=== PATIENT | male | born 1995 | race Caucasian/White ===

== ENCOUNTER 2018-07-01 16:12 | Emergency (ER) | payer BC, SELFPAY ==
[2018-07-01] VITALS (33 sets, daily range): BP systolic 102–123; BP diastolic 44–81; PULSE 61–114; RESP 16–23; TEMP 37–38.6; O2SAT 95–98
--- NOTE | 2018-07-01 16:20 | DI.CT_ITS ---
SYMPTOMS/DIAGNOSIS: ABSCESS CT SCAN OF THE NECK: CT scan of the neck was performed following the uneventful administration of intravenous contrast material. There are no priors for comparison. There is symmetric enlargement of the palatine tonsils bilaterally. No fluid collection is seen to suggest a tonsillar abscess. The tonsils meet in the midline narrowing of the airway. There is a fluid density collection in the retropharyngeal soft tissues measures up to 0.6 cm AP diameter x 2.3 cm transverse x 6 cm craniocaudally. The findings are suspicious for retropharyngeal abscess. There are enlarged lymph nodes in the neck which are likely reactive. The largest are noted adjacent to the submandibular glands and the largest measures 2.5 cm in length. The nasopharynx, oropharynx, hypopharynx and larynx are otherwise unremarkable. The parotid and submandibular glands are unremarkable. The thyroid gland has a normal appearance. The lung apices are clear. The cervical spine is normal in alignment. No fractures or subluxations are appreciated. There is mild mucosal thickening in the ethmoid air cells, maxillary sinuses and sphenoid sinuses bilaterally. No fluid levels are seen. The mastoid air cells are well pneumatized. IMPRESSION: 1. Fluid collection in the retropharyngeal space measuring 0.6 cm x 6 cm x 2.3 cm suspicious for a retropharyngeal abscess. 2. Bilateral symmetric enlargement of the palatine tonsils suggesting tonsillitis. 3. Enlarged cervical lymph nodes likely reactive.
--- NOTE | 2018-07-01 16:26 | W.ED.GENAD ---
Discharge Plan Disposition Patient Disposition: STILL A PATIENT Condition: Serious Discharge Details Chief Complaint: Sorethroat Clinical Impression: CMV mononucleosis Primary Care Provider: [facility] Provider: Summer Gutierrez Home Meds and New Rx's Prescriptions: No Action No Known Home Meds RF: 0 Discharge Data Discharge Date/Time-TO BE ENTERED AT DEPARTURE: 07/02/18 00:51 Medical Decision Making Patient is a 22-year-old male presents today with chief complaint of sore throat. On exam, the patient does appear toxic. He is currently febrile with a temp of 38.6. He is a large amount of swelling and drooling from oropharynx. Swelling is appreciated on the bilateral aspect of the neck with external visualization. He is tripoding and appears uncomfortable. He is holding the mouth in an open position unable to close secondary to swelling, trismus is appreciated. Posterior oropharynx is significant for bilateral tonsillar exudate, swelling of tonsils touching. Uvula is midline. Lungs are clear on exam. He is denying any cough. Reports that he has been able to hydrate some. I am quite concerned for large abscesses that may extend into the lower aspects of the neck given the large amount of swelling he is having. Also have concidered mono given the bilateral swelling but have not seen swelling this dramatic with mono in the past. Patient will be hydrated, begun on clindamycin, given IV dexamethasone will obtain CT of the patient's neck. Blood cultures and laboratory evaluation have been drawn including CBC, CMP, lactate, mono screen. Discussed plan to the patient who is in agreement. Patient does not appear to be in imminent danger of losing his airway, is breathing comfortably, oxygen is 98% on room air. No submandibular swelling. Patient is kept in upright position as this seems to help with breathing and secretions. After receiving IV Dexamethasone he became nausated and began to dry heave. Will give IV Zofran. I am concerned given the appearance of his airway that if the patient was to vomit he may loose his airway. Consulted with Dr. Rodgers who also evaluated the patient. Based on the patients fatigue and equal, bilateral swelling, she is concerned that this is a severe case of mono. [facility] screen has already been sent. Labs are pending. In the interum, she advised that we continue with the above plan and add Toradol to help with discomfort. Patient afebrile after IV Tylenol. Patient is found to be mono positive. Lactate 1.6. Remaining labs are pending CT reviewed by radiologist. They note bilateral symmetric enlargement of the palatine tonsils with no peritonsillar abscess. Hypopharynx is unremarkable. Larynx is unremarkable, normal epiglottis. Advised trachea is unremarkable. Retropharyngeal space is significant for low-density fluid present with the retropharyngeal space measuring up to 0.6 cm in thickness and extending from C2 through C4 levels. Submandibular and parotid glands are unremarkable, glands are of normal size. Thyroid is unremarkable with no enlargement or calcified nodules. Lungs are unremarkable. Vasculature is unremarkable no acute findings. Patient is known to have multiple enlarged bilateral cervical chain lymph nodes, likely reactive. Lung apices are clear. Upper mediastinum is unremarkable. Consulted with [facility] and spoke with Dr. Steele. He reviewed the patient's CT. Advised that the fluid collection that the radiologist noted was not an retropharyngeal abscess. Advised that this appears benign. Advised that this is flat and not concerning for airway compromise at this time. Encouraged we treat typically for mono. Advised use of dexamethasone which patient has already received. Advised that at this time it does not sound to be infectious in nature as the patient's temperature is less than 39 ?C. Encourage symptomatic management. He did advise that if there was leukocytosis the patient may receive a dose of antibiotics for possible underlying bacterial etiology that may also be present. His white count is elevated at 13.94. This is elevated 7.9. AST and ALT are both elevated at 247 and 462 respectively. Patient appearance still seems far too sick to be able to send home. I remain concerned about his airway. He is currently on oxygen. Coughing frequently, increasing my concern for his airway. Appears otherwise comfortable, texting on his phone. While ENT does not feel that he is a surgical candidate at this time, I will consult with our hospitalist regarding admission Spoke with Dr. Damian regarding admission. However, given the patient's acuity and possible airway management concerns, he did not feel that this patient was appropriate for admission to our facility as we do not have any ENT backup Consulted again with [facility] regarding hospital admission to medicine where airway may be managed if necessary. They advised they have no hospital medicine beds and are unable to take patient in transfer Contacted [facility] to discuss possible transfer as [facility] is refusing hospital admissions at this time. Awaiting callback Spoke with [facility], they also advised no bed availability. Discussed this concern with the patient and his parents. Advised that we could try to transfer him further south, toward their home in [place]. Plan to next contact the [facility] in [place]. Mother seems to be in agreement but father is concerned about cost. They are quesitoning if they may transport him POV to other facility. I advised that given the appearance of his airway, I would not recommend this, particularly as he was near vomiting earlier. We discussed, at length, my concern for possible airway compromise and advised that he would need to go in the presence of [employer] sewer so that, in the event he have airway compromise, a medical professional would be able to intervein. Father reports that he can stop at another facility if needed along the way. However, I advised that this is something that could potentionially be life threatening and immediate without time to reach another facility and advised strongly against this. I have given them time to discuss. ADvised that should he leave in POV it would be AMA. After seeing another patient, I returned to find that the parents had left. Patient reports that he is feeling improved overall and that he will be leaving with his parents POV to go back to [place]. I discussed my concerns with the patient privately as well so that he is aware of the risks of transport and we may discuss these concerns without his parents. He voices understanding, is cognitively appropriate, and wishes to go with his parents back to [place] via POV. He continues with his hot potato voice, has large amount of external swelling. Is now able to close his mouth, continues to be without stridor or wheezing. He and his family plan to leave here and go to another ER facility in [place]. Family came back after 1.5 hours of packing. Mother is now questioning which hospital he will be tranferred to. I advised that, given what the patient and family had said previously, no transfer had been arranged as they had said they would take him POV to [place]. They seem quiet frustrated by this. Again, we discussed the risks at length of him traveling POV and that this would be against medical advise. Advised that we are unable to arrange for transfer via private vehicle secondary to patient safety concerns. Family again spoke privately and now agree to transfer via EMS to hospital closer to home as there is no appropriate facility that is currently accepting patients closer. Father gave list of 3 hospitals within close proximity to their home. Spoke with [facility], no beds available. Spoke with [facility], no beds available. Consulted with ER physician at [facility], spoke with Dr. Betancur . She advises that their [facility] does not have ENT coverage and she is concerned that their facility is not appropriate place for transfer. ADvised [facility], [facility] or other larger facility near [place]. [facility] [place] regarding transfer to their facility. No bed available at this time. Will consult with [facility] to discuss transfer. No beds available in [facility] at this time including [facility]. No beds available at [facility]. Spoke with [facility], no beds available. No beds at [facility]. Consult with [facility]. Awaiting call back on possible pediatric bed. Consulted with [facility] to discuss possible transfer. They will call back. Spoke with [facility] pediatric physician, Dr. Lei. Gave report. She is concerned about transfer and feels that he would be better to transfer to the ED first, is going to consult with the ED and call us back. At the end of my shift, I am awaiting call back from above hospitals. Patient continues to appear more improved. He is speaking with hot potato voice, continues to have visible external swelling. Is able to close his mouth and handle secretions at this time. Care was transferred to Dr. Sweet who will continue to work on disposition for the patient. Spoke with mother again regarding his improvements but my continued concern for his airway. HPI General Mode of arrival: ambulatory. Date/Time Provider Initiated Documentation: 07/01/18 16:19. Limitations to Documentation: no limitations. Information obtained by: patient. History of Present Illness 22 year old M presents to the emergency department with the chief complaint of sore throat, described as severe, with intensity rated at 7 (reports pain is minimal but swelling is maximal, limiting the movement of jaw and muffling voice). Quality is described as aching, and is localized to the mouth and neck. Patient reports no radiation. Patient started experiencing this day(s) (3) and it has been constant. No relieving factors improve symptom(s), No exacerbating factors reported . Patient notes fever/chills, loss of appetite, malaise and nausea/vomiting; denies chest pain, cough, diaphoresis, headaches, rash, shortness of breath and weakness. Patient did receive the following treatments prior to arrival, none Related Data Home Medications Medication Instructions Recorded Confirmed Unknown [No Known Home Meds] 01/22/17 01/22/17 Allergies Allergy/AdvReac Type Severity Reaction Status Date / Time No Known Allergies Allergy Unverified 01/22/17 23:14 General Stated Complaint: Sorethroat YAW: 2 Review of Systems Constitutional Reports chills, Reports fatigue, Reports fever(s), Denies headache(s) and Reports poor appetite Eyes Denies change in vision, Denies diplopia, Denies irritation and Denies itchy eyes ENT Denies dizziness, Denies ear discharge, Denies facial pain, Denies headache(s), Denies lip swelling, Denies epistaxis, Denies nose pain, Denies post nasal drip, Denies sinus pain, Denies sinus pressure, Reports sore throat, Reports throat swelling and Denies tongue swelling Cardiovascular Denies chest pain, Denies chest pain at rest and Denies dyspnea Respiratory Denies cough, Denies dyspnea, Denies stridor and Denies wheezing Gastrointestinal Denies abdominal pain, Denies change in stool character, Denies constipation, Denies diarrhea, Reports nausea and Denies vomiting Musculoskeletal Denies abnormal gait and Denies back pain Integumentary/Breasts Denies rash Neurologic Reports abnormal speech, Denies abnormal gait, Denies dizziness and Denies headache(s) Endocrine Reports fatigue Allergic/Immunologic Denies itchy eyes, Denies lip swelling, Reports throat swelling, Denies tongue swelling and Denies wheezing [facility] Social History Smoking/Tobacco Use Status: Never Exam Const General: cooperative, well developed, well groomed, not anxious, ill appearing acutely and well hydrated Nutritional Appearance: average body habitus and well nourished Orientation: alert and awake [facility] Head: normal to inspection, normocephalic and atraumatic Ears: hearing grossly normal bilaterally, external ears normal and TM's normal bilaterally General nose exam: external nose normal and nares normal Face and sinus: normal facial exam and sinuses nontender Mouth: tongue normal, oropharynx abnormals, moist mucous membranes, audible dysphonia (hot potato voice), drooling (patient is not swallowing secretions), normal lip, No mouth trauma, muffled voice, trismus and restricted motion (patient is holding mouth in a semiopened position with lower jaw thrust forward) Teeth and gingiva: dentition normal Throat: uvula midline, abnormal tonsil bilaterally erythema, exudates and hypertrophy 4+, uvula not displaced and no uvular edema Eyes General: appearance normal, both eyes and all related structures Neck Neck: not normal to visual inspection, lymphadenopathy noted (patient has gross amount of swelling with swelling that extends outward past the sides of the jaw line. Swelling extends inferiorly to the clavicle), trachea midline, anterior neck swelling, lymphadenopathy, no midline deformity, tender and no tracheal deviation Chest Chest: normal inspection of the chest Resp Effort & Inspection: normal respiratory effort, able to speak in complete sentences, no audible wheezes, cough Quality of cough: dry (seems associated with throat irritation), no respiratory distress, no retractions, no stridor, not tachypneic, no tracheal deviation, tripod positioning and no use of accessory muscles Auscultation: clear to auscultation bilaterally, no rales, no rhonchi and no wheezes Cardio Rate: regular rate Rhythm: regular rhythm Heart Sounds: S1 normal and S2 normal GI Inspection: normal to inspection, no edema and non-distended Palpation: soft, no hepatosplenomegaly, not firm, no guarding, no hepatosplenomegaly, no masses, not rigid and nontender Auscultation: normal bowel sounds Skin General skin exam: no rashes or lesions noted Lesions: no lesions Rashes: no rashes Trauma: no lacerations or abrasions Neuro General: alert and awake Cognition: normal cognition Speech: speech normal Gait: normal gait Psych Appearance: grossly normal and well kempt Mental Status: mental status grossly normal Speech and Movement: speech and movement normal Course Vital Signs Temperature 38.6 C H 07/01/18 16:17 Pulse 114 H 07/01/18 16:17 Respiratory Rate 20 07/01/18 16:17 Blood Pressure 123/56 L 07/01/18 16:17 Pulse Oximetry 98 07/01/18 16:17 Temperature 38.6 C H 07/01/18 16:17 Temperature Source Temporal Artery Scan 07/01/18 16:17 Pulse 114 H 07/01/18 16:17 Respiratory Rate 20 07/01/18 16:17 Blood Pressure 123/56 L 07/01/18 16:17 Blood Pressure Position Supine 07/01/18 16:17 Pulse Oximetry 98 07/01/18 16:17 Oxygen Delivery Method Room Air 07/01/18 16:17 Oxygen Flow Rate 0 07/01/18 16:17 Pain Level 6 07/01/18 16:17 Lab/Test Results Lab/Test Results: 07/01/18 16:20 Blood Blood Culture - Pending 07/01/18 16:20 Blood Blood Culture - Pending
--- NOTE | 2018-07-01 16:30 | ED.GENADUL_ITS ---
Discharge Plan Disposition Patient Disposition: STILL A PATIENT Condition: Serious Discharge Details Chief Complaint: Sorethroat Clinical Impression: CMV mononucleosis Primary Care Provider: [facility] ED Provider: Summer Gutierrez Home Meds and New Rx's Prescriptions: No Action No Known Home Meds RF: 0 Discharge Data Discharge Date/Time-TO BE ENTERED AT DEPARTURE: 07/02/18 00:51 Medical Decision Making Patient is a 22-year-old male presents today with chief complaint of sore throat. On exam, the patient does appear toxic. He is currently febrile with a temp of 38.6. He is a large amount of swelling and drooling from oropharynx. Swelling is appreciated on the bilateral aspect of the neck with external visualization. He is tripoding and appears uncomfortable. He is holding the mouth in an open position unable to close secondary to swelling, trismus is appreciated. Posterior oropharynx is significant for bilateral tonsillar exudate, swelling of tonsils touching. Uvula is midline. Lungs are clear on exam. He is denying any cough. Reports that he has been able to hydrate some. I am quite concerned for large abscesses that may extend into the lower aspects of the neck given the large amount of swelling he is having. Also have concidered mono given the bilateral swelling but have not seen swelling this dramatic with mono in the past. Patient will be hydrated, begun on clindamycin , given IV dexamethasone will obtain CT of the patient's neck. Blood cultures and laboratory evaluation have been drawn including CBC, CMP, lactate, mono screen. Discussed plan to the patient who is in agreement. Patient does not appear to be in imminent danger of losing his airway, is breathing comfortably, oxygen is 98% on room air. No submandibular swelling. Patient is kept in upright position as this seems to help with breathing and secretions. After receiving IV Dexamethasone he became nausated and began to dry heave. Will give IV Zofran. I am concerned given the appearance of his airway that if the patient was to vomit he may loose his airway. Consulted with Dr. Rodgers who also evaluated the patient. Based on the patients fatigue and equal, bilateral swelling, she is concerned that this is a severe case of mono. Cross screen has already been sent. Labs are pending. In the interum, she advised that we continue with the above plan and add Toradol to help with discomfort. Patient afebrile after IV Tylenol. Patient is found to be mono positive. Lactate 1.6. Remaining labs are pending CT reviewed by radiologist. They note bilateral symmetric enlargement of the palatine tonsils with no peritonsillar abscess. Hypopharynx is unremarkable. Larynx is unremarkable, normal epiglottis. Advised trachea is unremarkable. Retropharyngeal space is significant for low-density fluid present with the retropharyngeal space measuring up to 0.6 cm in thickness and extending from C2 through C4 levels. Submandibular and parotid glands are unremarkable, glands are of normal size. Thyroid is unremarkable with no enlargement or calcified nodules. Lungs are unremarkable. Vasculature is unremarkable no acute findings. Patient is known to have multiple enlarged bilateral cervical chain lymph nodes, likely reactive. Lung apices are clear. Upper mediastinum is unremarkable. Consulted with [facility], ENT and spoke with Dr. Steele. He reviewed the patient's CT. Advised that the fluid collection that the radiologist noted was not an retropharyngeal abscess. Advised that this appears benign. Advised that this is flat and not concerning for airway compromise at this time. Encouraged we treat typically for mono. Advised use of dexamethasone which patient has already received. Advised that at this time it does not sound to be infectious in nature as the patient's temperature is less than 39 ?C. Encourage symptomatic management. He did advise that if there was leukocytosis the patient may receive a dose of antibiotics for possible underlying bacterial etiology that may also be present. His white count is elevated at 13.94. This is elevated 7.9. AST and ALT are both elevated at 247 and 462 respectively. Patient appearance still seems far too sick to be able to send home. I remain concerned about his airway. He is currently on oxygen. Coughing frequently, increasing my concern for his airway. Appears otherwise comfortable, texting on his phone. While ENT does not feel that he is a surgical candidate at this time, I will consult with our hospitalist regarding admission Spoke with Dr. Damian regarding admission. However, given the patient's acuity and possible airway management concerns, he did not feel that this patient was appropriate for admission to our facility as we do not have any ENT backup Consulted again with [facility] regarding hospital admission to medicine where airway may be managed if necessary. They advised they have no hospital medicine beds and are unable to take patient in transfer Contacted [facility] to discuss possible transfer as [facility] is refusing hospital admissions at this time. Awaiting callback Spoke with [facility], they also advised no bed availability. Discussed this concern with the patient and his parents. Advised that we could try to transfer him further south, toward their home in [place]. Plan to next contact the [facility] in [place]. Mother seems to be in agreement but father is concerned about cost. They are quesitoning if they may transport him POV to other facility. I advised that given the appearance of his airway, I would not recommend this, particularly as he was near vomiting earlier. We discussed, at length, my concern for possible airway compromise and advised that he would need to go in the presence of service team leader so that, in the event he have airway compromise, a medical professional would be able to intervein. Father reports that he can stop at another facility if needed along the way. However, I advised that this is something that could potentionially be life threatening and immediate without time to reach another facility and advised strongly against this. I have given them time to discuss. ADvised that should he leave in POV it would be AMA. After seeing another patient, I returned to find that the parents had left. Patient reports that he is feeling improved overall and that he will be leaving with his parents POV to go back to [place]. I discussed my concerns with the patient privately as well so that he is aware of the risks of transport and we may discuss these concerns without his parents. He voices understanding, is cognitively appropriate, and wishes to go with his parents back to [place] via POV. He continues with his hot potato voice, has large amount of external swelling. Is now able to close his mouth, continues to be without stridor or wheezing. He and his family plan to leave here and go to another ER facility in [place]. Family came back after 1.5 hours of packing. Mother is now questioning which hospital he will be tranferred to. I advised that, given what the patient and family had said previously, no transfer had been arranged as they had said they would take him POV to [place]. They seem quiet frustrated by this. Again, we discussed the risks at length of him traveling POV and that this would be against medical advise. Advised that we are unable to arrange for transfer via private vehicle secondary to patient safety concerns. Family again spoke privately and now agree to transfer via EMS to hospital closer to home as there is no appropriate facility that is currently accepting patients closer. Father gave list of 3 hospitals within close proximity to their home. Spoke with [facility], no beds available. Spoke with [facility], no beds available. Consulted with ER physician at [facility], spoke with Dr. Betancur . She advises that their [facility] does not have ENT coverage and she is concerned that their facility is not appropriate place for transfer. ADvised [facility], [place], [facility] or other larger facility near [place]. [facility] [place] regarding transfer to their facility. No bed available at this time. Will consult with [facility] to discuss transfer. No beds available in [facility] at this time including [facility]. No beds available at [facility]. Spoke with [facility], no beds available. No beds at [facility]. Consult with [facility]. Awaiting call back on possible pediatric bed. Consulted with [facility] to discuss possible transfer. They will call back. Spoke with [facility] pediatric physician, Dr. Lei. Gave report. She is concerned about transfer and feels that he would be better to transfer to the ED first, is going to consult with the ED and call us back. At the end of my shift, I am awaiting call back from above hospitals. Patient continues to appear more improved. He is speaking with hot potato voice, continues to have visible external swelling. Is able to close his mouth and handle secretions at this time. Care was transferred to Dr. Sweet who will continue to work on disposition for the patient. Spoke with mother again regarding his improvements but my continued concern for his airway. HPI General Mode of arrival: ambulatory . Date/Time Provider Initiated Documentation: 07/01/18 16:19 . Limitations to Documentation: no limitations . Information obtained by: patient . History of Present Illness 22 year old M presents to the emergency department with the chief complaint of sore throat, described as severe, with intensity rated at 7 (reports pain is minimal but swelling is maximal, limiting the movement of jaw and muffling voice). Quality is described as aching, and is localized to the mouth and neck. Patient reports no radiation. Patient started experiencing this day(s ) (3) and it has been constant. No relieving factors improve symptom(s), No exacerbating factors reported . Patient notes fever/chills, loss of appetite, malaise and nausea/vomiting; denies chest pain, cough, diaphoresis, headaches, rash, shortness of breath and weakness. Patient did receive the following treatments prior to arrival, none Related Data Home Medications Medication Instructions Recorded Confirmed Unknown [No Known Home Meds] 01/22/17 01/22/17 Allergies Allergy/AdvReac Type Severity Reaction Status Date / Time No Known Allergies Allergy Unverified 01/22/17 23:14 General Stated Complaint: Sorethroat YAW: 2 Review of Systems Constitutional Reports chills, Reports fatigue, Reports fever(s), Denies headache(s) and Reports poor appetite Eyes Denies change in vision, Denies diplopia, Denies irritation and Denies itchy eyes ENT Denies dizziness, Denies ear discharge, Denies facial pain, Denies headache(s), Denies lip swelling, Denies epistaxis, Denies nose pain, Denies post nasal drip , Denies sinus pain, Denies sinus pressure, Reports sore throat, Reports throat swelling and Denies tongue swelling Cardiovascular Denies chest pain, Denies chest pain at rest and Denies dyspnea Respiratory Denies cough, Denies dyspnea, Denies stridor and Denies wheezing Gastrointestinal Denies abdominal pain, Denies change in stool character, Denies constipation, Denies diarrhea, Reports nausea and Denies vomiting Musculoskeletal Denies abnormal gait and Denies back pain Integumentary/Breasts Denies rash Neurologic Reports abnormal speech, Denies abnormal gait, Denies dizziness and Denies headache(s) Endocrine Reports fatigue Allergic/Immunologic Denies itchy eyes, Denies lip swelling, Reports throat swelling, Denies tongue swelling and Denies wheezing [facility] Social History Smoking/Tobacco Use Status: Never Exam Const General: cooperative, well developed, well groomed, not anxious, ill appearing acutely and well hydrated Nutritional Appearance: average body habitus and well nourished Orientation: alert and awake [facility] Head: normal to inspection, normocephalic and atraumatic Ears: hearing grossly normal bilaterally, external ears normal and TM's normal bilaterally General nose exam: external nose normal and nares normal Face and sinus: normal facial exam and sinuses nontender Mouth: tongue normal, oropharynx abnormals, moist mucous membranes, audible dysphonia (hot potato voice), drooling (patient is not swallowing secretions), normal lip, No mouth trauma, muffled voice, trismus and restricted motion ( patient is holding mouth in a semiopened position with lower jaw thrust forward) Teeth and gingiva: dentition normal Throat: uvula midline, abnormal tonsil bilaterally erythema, exudates and hypertrophy 4+, uvula not displaced and no uvular edema Eyes General: appearance normal, both eyes and all related structures Neck Neck: not normal to visual inspection, lymphadenopathy noted (patient has gross amount of swelling with swelling that extends outward past the sides of the jaw line. Swelling extends inferiorly to the clavicle), trachea midline, anterior neck swelling, lymphadenopathy, no midline deformity, tender and no tracheal deviation Chest Chest: normal inspection of the chest Resp Effort & Inspection: normal respiratory effort, able to speak in complete sentences, no audible wheezes, cough Quality of cough: dry (seems associated with throat irritation), no respiratory distress, no retractions, no stridor, not tachypneic, no tracheal deviation, tripod positioning and no use of accessory muscles Auscultation: clear to auscultation bilaterally, no rales, no rhonchi and no wheezes Cardio Rate: regular rate Rhythm: regular rhythm Heart Sounds: S1 normal and S2 normal GI Inspection: normal to inspection, no edema and non-distended Palpation: soft, no hepatosplenomegaly, not firm, no guarding, no hepatosplenomegaly, no masses, not rigid and nontender Auscultation: normal bowel sounds Skin General skin exam: no rashes or lesions noted Lesions: no lesions Rashes: no rashes Trauma: no lacerations or abrasions Neuro General: alert and awake Cognition: normal cognition Speech: speech normal Gait: normal gait Psych Appearance: grossly normal and well kempt Mental Status: mental status grossly normal Speech and Movement: speech and movement normal Course Vital Signs Temperature 38.6 C H 07/01/18 16:17 Pulse 114 H 07/01/18 16:17 Respiratory Rate 20 07/01/18 16:17 Blood Pressure 123/56 L 07/01/18 16:17 Pulse Oximetry 98 07/01/18 16:17 Temperature 38.6 C H 07/01/18 16:17 Temperature Source Temporal Artery Scan 07/01/18 16:17 Pulse 114 H 07/01/18 16:17 Respiratory Rate 20 07/01/18 16:17 Blood Pressure 123/56 L 07/01/18 16:17 Blood Pressure Position Supine 07/01/18 16:17 Pulse Oximetry 98 07/01/18 16:17 Oxygen Delivery Method Room Air 07/01/18 16:17 Oxygen Flow Rate 0 07/01/18 16:17 Pain Level 6 07/01/18 16:17 Lab/Test Results Lab/Test Results: 07/01/18 16:20 Blood Blood Culture - Pending 07/01/18 16:20 Blood Blood Culture - Pending
[2018-07-01] MEDS: Dexamethasone 10 MG/ML VIAL IVP (16:35)
[2018-07-01] MEDS: Ondansetron 4 MG/2 ML VIAL IVP (16:40)
[2018-07-01] MEDS: Normal Saline 1,000 ML 1000 ML IV (16:40)
[2018-07-01] MEDS: ACETAMINOPHEN 1,000 MG/100 ML BTL 400 MG IVPB (16:52)
[2018-07-01 16:58] LABS: Lactate-non-spesis 1.6 mmol/L (0.6-1.4)
[2018-07-01 17:04] LABS: HCT 44.5 % (40.0-50.0); HGB 15.8 g/dL (13.5-17.5); Mean Corp. HGB Concentration 35.5 g/dL (32.0-36.0); Mean Corpuscular Hemoglobin 29.6 pg (27.0-33.0); Mean Corpuscular Volume 83.3 fL (80-95); Mean Platelet Volume 11.4 fL (8.0-11.0); Platelet Count 150 x1000/uL (130-400); RBC 5.34 m/cumm (4.50-6.00); RBC Distribution Width 12.5 % (11.8-14.1); White Blood Cell Count 13.94 k/cumm (4.4-10.8)
[2018-07-01] MEDS: Omnipaque 350 MG/ML 100 ML BTL IJ (17:04)
[2018-07-01] MEDS: Ketorolac 30 MG/ML VIAL IVP ×2 (17:12→17:25)
[2018-07-01 17:15] LABS: ALT 462 U/L (12-78); AST 247 U/L (15-37); Albumin 3.6 g/dL (3.4-5.0); Alkaline Phosphatase 202 U/L (46-116); Anion Gap 6.1 mmol/L (3-11); BUN 10 mg/dL (7-18); Bilirubin, Total 1.1 mg/dL (0.2-1.0); CO2 28.9 mmol/L (21.0-32.0); CREATININE 1.19 mg/dL (0.70-1.30); Calcium 7.8 mg/dL (8.5-10.1); Chloride 98 mmol/L (98-107); Glucose 119 mg/dL (70-100); Potassium 4.4 mmol/L (3.5-5.1); Sodium 133 mmol/L (136-145); Total Protein 7.5 g/dL (6.4-8.2)
[2018-07-01 17:21] LABS: Mono Screening POSITIVE (Negative)
[2018-07-01] MEDS: CLINDAMYCIN 900 MG/50 ML BAG 100 MG IVPB (17:22)
--- NOTE | 2018-07-01 17:38 | DI.VRAD_ITS ---
EXAM: CT Neck With Intravenous Contrast CLINICAL HISTORY: 22 years old, male; Signs and symptoms; Other: Abscess x 3 days TECHNIQUE: Axial computed tomography images of the neck with intravenous contrast. All CT scans at this facility use at least one of these dose optimization techniques: automated exposure control; mA and/or kV adjustment per patient size (includes targeted exams where dose is matched to clinical indication); or iterative reconstruction. Coronal and sagittal reformatted images were created and reviewed. CONTRAST: 100 mL of Omnipaque 350 administered intravenously. COMPARISON: No relevant prior studies available. FINDINGS: Oropharynx: Bilateral symmetric enlargement of the palatine tonsils. No peritonsillar abscess. Hypopharynx: Unremarkable. Larynx: Unremarkable. Normal epiglottis. Trachea: Unremarkable. Retropharyngeal space: Low-density fluid is present within the retropharyngeal space measuring up to 0.6 cm in thickness and extending from the C2 through the C4 levels. Submandibular/parotid glands: Unremarkable. Glands are normal in size. Thyroid: Unremarkable. No enlarged or calcified nodules. Bones/joints: Unremarkable. Vasculature: No acute findings. Lymph nodes: Multiple enlarged bilateral cervical chain lymph nodes, likely reactive. Lung apices: Lung apices are clear. Mediastinum: The upper mediastinum is unremarkable. IMPRESSION: 1. Findings concerning for retropharyngeal abscess measuring 0.6 cm in thickness and extending from C2-C4. 2. Bilateral symmetric enlargement of the palatine tonsils, which could indicate underlying tonsillitis. 3. Multiple enlarged bilateral cervical chain lymph nodes, likely reactive. THIS REPORT CONTAINS FINDINGS THAT MAY BE CRITICAL TO PATIENT CARE. The findings were verbally communicated via telephone conference with THOMAS CARDONA at 5:38 PM EDT on 07/01/2018. The findings were acknowledged and understood. Dictated and Authenticated by: Rafael Ramires MD. Ordering:LEXI GUZMAN MD
[2018-07-01 17:47] LABS: Absolute Neutrophil Count 4.04 k/cumm (1.2-6.7)
[2018-07-01 17:48] LABS: Absolute Lymphocyte Count 7.95 k/cumm (1.2-3.4); Absolute Monocyte Count 1.53 k/cumm (0.11-0.7); Atypical Lymphocytes % 22
[2018-07-01 17:49] LABS: Diff Comment RBC Morph Reviewed
[2018-07-01 17:50] LABS: RBC Morphology Normal
--- NOTE | 2018-07-02 00:13 | W.ED.FU ---
Patient signed out to me from Summer Gutierrez as no bed availability at numerous hospitals that she has conacted. Spoke with Dr. Mary at [facility], pediatric ED and they have accepted the pt in transfer. Pt remains stable at this time
[2018-07-02] MEDS: Normal Saline 1,000 ML 150 ML IV (01:00)
[2018-07-02 01:02] VITALS: BP 113/62; PULSE 50; RESP 18; TEMP 36.5; O2SAT 98
== END 2018-07-02 00:51 | disposition still patient (30) ==
PROVIDERS: Emergency Provider Physician Assistant
DX: B27.10 Cytomegaloviral mononucleosis without complications (principal)
CPT/HCPCS: 36415; 70491; 80053; 87040; 96361; 96374; 99285; 83605; 85025; 86308; J0131; J1100; J1885; J2405; J3490